=== PATIENT | female | born 1970 | race Caucasian/White ===

== ENCOUNTER 2018-09-20 20:08 | Emergency (ER) | payer MEDICAID ==
[2018-09-20 22:59] LABS: ADD MAN DIFF? NO
[2018-09-20] MEDS: SOD CHLORIDE 0.9% 500 ML IV (23:00)
[2018-09-20] MEDS: NICARDipine HCL 30 MG CAPSULE PO (23:00)
[2018-09-20 23:02] LABS: BASOPHILS % 0.3 % (0.0-2.0); EOSINOPHILS # 0.3 10^3/ul (0.0-0.5); EOSINOPHILS % 2.3 % (0.0-7.0); HEMATOCRIT 41.3 % (37.0-47.0); HEMOGLOBIN 13.7 g/dl (12.0-16.0); LYMPHOCYTES # 3.6 10^3/ul (0.8-2.9); LYMPHOCYTES % 29.2 % (15.0-51.0); MEAN CORPUSCULAR HEMOGLOBIN 29.7 pg (29.0-33.0); MEAN CORPUSCULAR HGB CONC 33.2 g/dl (32.0-37.0); MEAN CORPUSCULAR VOLUME 89.6 fl (82.0-101.0); MONOCYTE # 1.2 10^3/ul (0.3-0.9); MONOCYTES % 9.6 % (0.0-11.0); NEUTROPHIL # 7.2 10^3/ul (1.6-7.5); NEUTROPHILS % 58.1 % (39.0-77.0); PLATELET COUNT 300 10^3/UL (140-415); RED BLOOD COUNT 4.61 10^6/ul (4.20-5.40); RED CELL DISTRIBUTION WIDTH 12.7 % (11.5-14.5)
[2018-09-20 23:02] LABS: WHITE BLOOD COUNT 12.4 10^3/ul (4.8-10.8)
[2018-09-20 23:22] LABS: ANION GAP 13 (5-13); BLOOD UREA NITROGEN 11 mg/dl (7-20); CALCIUM 9.8 mg/dl (8.4-10.2); CARBON DIOXIDE 22 mmol/L (21-31); CHLORIDE 103 mmol/L (97-110); CREATININE 0.55 mg/dl (0.44-1.00); Estimated GFR > 60 mL/min (>60); GLUCOSE 124 mg/dl (70-220); POTASSIUM 4.4 mmol/L (3.5-5.1); SODIUM 138 mmol/L (135-144)
[2018-09-20 23:34] LABS: TROPONIN-I < 0.012 ng/ml (0.000-0.120)
[2018-09-20 23:39] LABS: FREE THYROXINE INDEX (Calc) 3.11 ug/ml (0.65-3.89); T3 UPTAKE 28.8 % (23.5-40.5); T4 (THYROXINE) 10.8 ug/dl (5.5-11.0)
[2018-09-20 23:53] LABS: THYROID STIMULATING HORMONE 0.702 MIU/L (0.465-4.680)
== END 2018-09-21 00:33 | disposition home or self-care (01) ==
LOC: E/R 20:08
DX: I16.0 Hypertensive urgency (principal); M54.2 Cervicalgia
CPT/HCPCS: 36415; 80048; 84436; 84443; 84479; 84484; 85025; 93005; 96360; 99284-25